=== PATIENT | female | born 1955 | race Caucasian/White ===

== ENCOUNTER → 2016-06-09 | Outpatient (CLI) | payer OTHER ==
[~2016-06-09] MED LIST: CHOL1000 PO; FLAX10007 PO; LEVO50TA6 PO; MULT-506 PO
--- NOTE | 2016-06-10 12:25 | MAMMOGRAPHY REPORT ---
BILATERAL DIGITAL SCREENING MAMMOGRAM TOMOSYNTHESIS WITH CAD: 06/09/2016 CLINICAL HISTORY: Routine screening examination. TECHNIQUE: Breast tomosynthesis in addition to standard 2D mammography was performed. Current study was also evaluated with a Computer Aided Detection (CAD) system. COMPARISON: Comparison is made to exams dated: 06/04/2015 mammogram, 05/12/2014 mammogram, 05/02/2013 mammogram, and 04/22/2012 mammogram - [facility]. BREAST COMPOSITION: There are scattered areas of fibroglandular density in both breasts. FINDINGS: There is a stable benign lymph node in the right breast. No suspicious mass, architectur al distortion or cluster of microcalcifications is seen. IMPRESSION: ACR BI-RADS CATEGORY 2: BENIGN There is no mammographic evidence of malignancy. A 1 year screening mammogram is recommended. The p atient will receive written notification of the results. Approximately 10% of breast cancers are not detected with mammography. A negative mammographic repor t should not delay biopsy if a clinically suggestive mass is present. Jackie Klein M.D. ay/:06/09/2016 21:24:50 Tetryl Nitrator Operator: Masha HUNTLEY(Eugenio)(M), [facility] letter sent: Normal 1/2 BI-RADS Code: ACR BI-RADS Category 2: Benign
== END | disposition home or self-care (01) ==
LOC: C.MAMM 10:19
PROVIDERS: ATTEND Student in an Organized Health Care Education/Training Program
DX: Z12.31 Encounter for screening mammogram for malignant neoplasm of breast (principal)

== ENCOUNTER 2017-04-25 05:10 | Emergency (ER) | payer OTHER ==
[~2017-04-25] VITALS: Ht 171.5 cm; Wt 84.8 kg
[~2017-04-25 05:10] MED LIST changes: +PRD/1 PO
[2017-04-25 05:15] VITALS: TEMP 36.8; Ht 171.5 cm; Wt 84.8 kg
[2017-04-25] MEDS ORDERED: LEVALBUTEROL 1.25MG/0.5ML NEB INH STA (05:39)
[2017-04-25] MEDS ORDERED: SODIUM CHLORIDE 0.9% 500ML 500 ML IV SCH (05:45)
--- NOTE | 2017-04-25 05:53 | EMERGENCY ROOM VISIT NOTE ---
History First contact with patient: 05:19 Chief Complaint: COUGH Stated Complaint: HVY CONGESTED DRY COUGH,VERY WEAK,THROAT ARREOLA Nursing Triage Summary: Patient reports that symptoms began for approx. a week. Cough and sore throat makes it hard to breath and swallow. Patient feels weak. Patient went to walk in clinic on , was given prednisone and tesslon perls with no relief. Patient notes SOB with stairs and exertion. Denies N/V/D History of Present Illness The patient is a 62 year old female who presents to the Emergency Room with complaints of a 1 and a half week history of cough, sore throat, congestion and rhinorrhea. She notes that her symptoms have been getting worse as the week progressed. She states she is now short of breath on exertion, after climbing a flight of stairs, which is new for her. She also reports she has been feeling feverish, with chills. She denies a past history of asthma, COPD, home use of inhalers or oxygen. She denies chest pain, shortness of breath at rest, leg swelling, recent travel/immobility. Of note, her has also been unwell with a cough for the past couple of days. Review of Systems See HPI for pertinent positives & negatives. A total of 10 systems reviewed and were otherwise negative. Past Medical/Surgical History Medical Problems: (1) Hypothyroidism Social History Smoking Status: Never Smoker Alcohol Use: none Drug Use: none Marital Status: Housing Status: lives with family Occupation Status: employed Current/Historical Medications Scheduled B-Complex Vitamins (Vitamin B Complex), 1 TAB PO DAILY Cholecalciferol (Vitamin D3), 1,000 UNIT PO DAILY Levothyroxine Sodium (Levothyroxine Sodium), 50 MCG PO DAILY Magnesium (Magnesium 250 mg), 1-2 TAB PO DAILY Multivitamin (Multivitamin), 1 TAB PO DAILY Prednisone (Prednisone), 2 TAB PO DAILY Probiotic Product (Probiotic), 1 CAP PO DAILY Scheduled PRN Benzonatate (Tessalon Perles), 1-2 CAP PO Q4 PRN for Cough Physical Exam Vital Signs Date Time Temp Pulse Resp B/P (MAP) Pulse Ox O2 Delivery O2 Flow Rate FiO2 04/25/17 07:03 94 18 113/72 97 Room Air 04/25/17 05:31 Room Air 04/25/17 05:15 36.8 112 20 146/86 95 Room Air Physical Exam HEENT: Head - normocephalic and atraumatic. Nose - moist nasal mucosa without discharge. Mouth - moist buccal mucosa. Oropharynx is erythematous and there is no tonsillar exudate or edema noted. Neck: Supple; no JVD, nuchal rigidity. Submandibular lymphadenopathy present. Heart: Regular rate and rhythm. There is a normal S1 and S2 with no murmurs, clicks, or gallops appreciated. Lungs: Clear to auscultation bilaterally with soft wheezes. No rales, crackles or rhonchi. Abdomen: Soft, completely nontender, nondistended, with good bowel sounds. There are no palpable pulsatile masses or hepatosplenomegaly. There is no guarding, rigidity, or rebound noted. Extremities: No evidence of cyanosis, clubbing, or edema. There are easily palpable peripheral pulses. Neuro:The patient is awake and alert, oriented to day, time, and place. Medical Decision & Procedures ER Provider Diagnostic Interpretation: CHEST ONE VIEW PORTABLE CLINICAL HISTORY: cough and sob, rule out infection dyspnea COMPARISON STUDY: 2008 FINDINGS: The bones soft tissues and hemidiaphragms are normal. The cardiomediastinal silhouette is normal. The lungs are clear. The pulmonary vasculature is normal. IMPRESSION: Negative chest. Laboratory Results 04/25/17 05:55 04/25/17 05:55 Test 04/25/17 05:55 04/25/17 06:03 Red Blood Count 4.37 M/uL (4.2-5.4) Mean Corpuscular Volume 95.4 fL (80-100) Mean Corpuscular Hemoglobin 31.8 pg (25-34) Mean Corpuscular Hemoglobin Concent 33.3 g/dl (32-36) RDW Standard Deviation 44.6 fL (36.4-46.3) RDW Coefficient of Variation 12.9 % (11.5-14.5) Mean Platelet Volume 9.0 fL (7.4-10.4) Anion Gap 9.0 mmol/L (3-11) Est Creatinine Clear Calc Drug Dose 65.7 ml/min Estimated GFR () 70.3 Estimated GFR (Non- 60.6 BUN/Creatinine Ratio 16.2 (10-20) Calcium Level 8.5 mg/dl (8.5-10.1) Total Bilirubin 0.8 mg/dl (0.2-1) Aspartate Amino Transf (AST/SGOT) 14 U/L (15-37) Alanine Aminotransferase (ALT/SGPT) 28 U/L (12-78) Alkaline Phosphatase 61 U/L (45-117) Total Protein 7.7 gm/dl (6.4-8.2) Albumin 3.6 gm/dl (3.4-5.0) Globulin 4.1 gm/dl (2.5-4.0) Albumin/Globulin Ratio 0.9 (0.9-2) Influenza Type A Antigen Neg for Influ A (NEG) Influenza Type B Antigen Neg for Influ B (NEG) Medications Administered Medications (Trade) Dose Ordered Sig/Josefina Route Start Time Stop Time Status Last Admin Dose Admin Levalbuterol (Xopenex 1.25MG/ 0.5ML Neb) 1.25 mg NOW STAT INH 04/25/17 05:39 04/25/17 05:41 DC 04/25/17 05:53 1.25 MG Sodium Chloride 500 ml @ 999 mls/hr Q31M IV 04/25/17 05:45 05/25/17 05:44 04/25/17 05:45 999 MLS/HR Acetaminophen (Tylenol Tab) 1,000 mg NOW STAT PO 04/25/17 06:35 04/25/17 06:36 DC 04/25/17 06:55 1,000 MG Guaifenesin (Organidin Nr Tab) 200 mg NOW ONCE PO 04/25/17 06:45 04/25/17 06:46 DC 04/25/17 06:45 200 MG Lidocaine HCl (Viscous Lidocaine 2% Soln) 10 ml NOW STAT MT 04/25/17 06:46 04/25/17 06:47 DC 04/25/17 06:56 10 ML ECG Indication: SOB/dyspnea Rate (beats per minute): 98 Rhythm: normal sinus Findings: no acute ischemic change, no ectopy Comparison ECG Date: no prior available ED Course 5:19: The patient was evaluated in room B10. A complete history and physical exam was performed. 5:35: The case was discussed with the attending, Dr. Aguilar. 5:41: Xopenex nebulizers and 500ml IV NS bolus ordered 6:20: Dr. Aguilar discussed her x-ray and lab findings with her. 6:32: The patient was reassessed. She states the nebulizers did not improve her symptoms at all. 6:35: 1g oral acetaminophen ordered. 6:43: 200mg PO Guaifenesin ordered 6:46: Viscous lidocaine ordered Medical Decision Etiologies such as pneumonia, COPD, reactive airway disease, CHF, cardiac ischemia, influenza, pneumothorax, musculoskeletal, infections, as well as others were entertained. The patient is a 62 year old female who presents to the Emergency Room with complaints of a 1 and a half week history of cough, sore throat, congestion and rhinorrhea. Her chest x-ray was unremarkable. CBC and CMP were within normal limits. Her symptoms did not improve with Xopenex nebulizers. She was also given acetaminophen, mucinex and viscous lidocaine. She was discharged with a prescription for viscous lidocaine to use as needed for her sore throat. She was also counselled on the fact that her illness was likely viral and that her cough may take a few weeks to fully resolve. She was told to return if her symptoms worsened. Impression Primary Impression: Upper respiratory infection Departure Information Dispostion Home / Self-Care Prescriptions Lidocaine Hcl (Mouth-Throat) (LIDOCAINE VISCOUS) 2 % Rimma 5 ML PO TID for 6 Days, #100 ML Prov: Heron Mulligan M.D. 04/25/17 Referrals No Doctor, Assigned (PCP) Patient Instructions My [facility] Additional Instructions You came to [facility] emergency department due to cough, sore throat, and generally feeling unwell. Your chest x-ray did not show any evidence of a pneumonia. Your EKG (electrical tracing of your heart) was normal and your blood work and flu swab came back normal as well. Your symptoms are likely due to a viral infection. Unfortunately, it can take up to 3-4 weeks for the cough to fully resolve. We recommend continuing to use tylenol, and mucinex as needed for your symptoms. We also prescribed lidocaine that you can use as needed for your sore throat. If you develop chest pain, high fevers, or worsening shortness of breath , please seek medical attention. Otherwise, you can follow up with your family doctor to ensure your symptoms are resolving. Resident Tracking Resident Involvement: Resident Care Provided Care Provided: Adult ED Problem Qualifiers Primary Impression: Upper respiratory infection URI type: unspecified viral URI Qualified Codes: J06.9 - Acute upper respiratory infection, unspecified
[2017-04-25 06:05] LABS: HEMATOCRIT 41.7 % (37-47); HEMOGLOBIN 13.9 g/dL (12.0-16.0); MEAN CELL VOLUME 95.4 fL (80-100); MEAN CORPUSCULAR HEMOGLOBIN 31.8 pg (25-34); MEAN CORPUSCULAR HGB CONC 33.3 g/dl (32-36); PLATELET COUNT 236 K/uL (130-400); RED CELL DISTRIBUTION WIDTH CV 12.9 % (11.5-14.5); RED CELL DISTRIBUTION WIDTH SD 44.6 fL (36.4-46.3); WHITE BLOOD COUNT 9.27 K/uL (4.8-10.8)
--- NOTE | 2017-04-25 06:15 | DIAGNOSTIC IMAGING REPORT ---
CHEST ONE VIEW PORTABLE CLINICAL HISTORY: cough and sob, rule out infection dyspnea COMPARISON STUDY: 2008 FINDINGS: The bones soft tissues and hemidiaphragms are normal. The cardiomediastinal silhouette is normal. The lungs are clear. The pulmonary vasculature is normal. IMPRESSION: Negative chest. The above report was generated using voice recognition software. It may contain grammatical, syntax or spelling errors. Electronically signed by: Andres Briones M.D. 04/25/2017 6:14 AM Dictated Date/Time: 04/25/2017 6:14 AM
[2017-04-25 06:21] LABS: ALBUMIN 3.6 gm/dl (3.4-5.0); CALCIUM 8.5 mg/dl (8.5-10.1); CREATININE 0.99 mg/dl (0.60-1.20); POTASSIUM 3.8 mmol/L (3.5-5.1)
[2017-04-25 06:24] LABS: TOTAL PROTEIN 7.7 gm/dl (6.4-8.2)
[2017-04-25] MEDS ORDERED: ACETAMINOPHEN 500 MG TAB PO STA (06:35)
[2017-04-25 06:40] LABS: INFLUENZA B ANTIGEN Neg for Influ B (NEG)
[2017-04-25] MEDS ORDERED: GUAIFENESIN 200 MG TAB PO ONE (06:45)
[2017-04-25] MEDS ORDERED: LIDOCAINE HCL 2% VISC SOLN 20 ML UDC MT STA (06:46)
[2017-04-25] MEDS ORDERED: MAGN250T3 PO (07:00)
[2017-04-25] MEDS ORDERED: MISCCAP80 PO (07:00)
[2017-04-25] MEDS ORDERED: B-COTAB18 PO (07:00)
[2017-04-25] MEDS ORDERED: BENZ100C84 PO (07:01)
[2017-04-25] MEDS ORDERED: LIDO2SOL19 PO (07:12)
--- NOTE | 2017-04-25 07:21 | EMERGENCY ROOM VISIT NOTE ---
History Report prepared by lEaine: Georgette Tobar Under the Supervision of: Dr. Caryl Aguilar D.O. First contact with patient: 05:19 Chief Complaint: COUGH Stated Complaint: HVY CONGESTED DRY COUGH,VERY WEAK,THROAT ARREOLA Nursing Triage Summary: Patient reports that symptoms began for approx. a week. Cough and sore throat makes it hard to breath and swallow. Patient feels weak. Patient went to walk in clinic on , was given prednisone and tesslon perls with no relief. Patient notes SOB with stairs and exertion. Denies N/V/D History of Present Illness The patient is a 62 year old female who presents to the Emergency Room with complaints of persistent cough starting 1.5 weeks ago. The cough was initially productive. She reports sore throat, sinus pressure, rhinorrhea, and some chills. She has not taken her temperature. She is SOB with exertion. She denies any chest pain or leg swelling. She did not receive a flu shot this season. She denies any recent travel or immobilization. Her has been sick with a cough for several days. She denies any history of COPD or asthma. She is not on any inhalers or oxygen. Patient with no history of ACS or cardiac pathology. Patient seen in conjunction with the family practice resident. Source of History: patient Onset: 1.5 weeks ago Position: other (global) Quality: other (cough) Timing: other (persistent) Associated Symptoms: + chills, + sorethroat, + SOB, No chest pain Note: Pt reports sinus pressure and rhinorrhea. Pt denies leg swelling. Review of Systems See HPI for pertinent positives & negatives. A total of 10 systems reviewed and were otherwise negative. Past Medical & Surgical Medical Problems: (1) Hypothyroidism Family History Diabetes mellitus FHx: cancer Kidney disease Kidney stones Social History Smoking Status: Never Smoker Alcohol Use: none Drug Use: none Marital Status: Housing Status: lives with family Occupation Status: employed Current/Historical Medications Scheduled B-Complex Vitamins (Vitamin B Complex), 1 TAB PO DAILY Cholecalciferol (Vitamin D3), 1,000 UNIT PO DAILY Levothyroxine Sodium (Levothyroxine Sodium), 50 MCG PO DAILY Lidocaine Hcl (Mouth-Throat) (Lidocaine Viscous), 5 ML PO TID Magnesium (Magnesium 250 mg), 1-2 TAB PO DAILY Multivitamin (Multivitamin), 1 TAB PO DAILY Prednisone (Prednisone), 2 TAB PO DAILY Probiotic Product (Probiotic), 1 CAP PO DAILY Scheduled PRN Benzonatate (Tessalon Perles), 1-2 CAP PO Q4 PRN for Cough Allergies Coded Allergies: Sulfa Drugs (Verified Allergy, Intermediate, HIVES, 04/25/17) Physical Exam Vital Signs Date Time Temp Pulse Resp B/P (MAP) Pulse Ox O2 Delivery O2 Flow Rate FiO2 04/25/17 07:45 92 18 118/69 98 04/25/17 07:03 94 18 113/72 97 Room Air 04/25/17 05:31 Room Air 04/25/17 05:15 36.8 112 20 146/86 95 Room Air Physical Exam GENERAL: alert, ill appearing, well nourished, no distress, non-toxic EYE EXAM: normal conjunctiva, PERRL and EOM's grossly intact OROPHARYNX: no exudate, mild erythema, lips, buccal mucosa, and tongue normal and mucous membranes are moist. No tonsillar hypertrophy. Uvula midline. NECK: supple, no nuchal rigidity, no adenopathy, non-tender LUNGS: Clear to auscultation. Normal chest wall mechanics. No wheezes, rhonchi, rales. HEART: no murmurs, S1 normal and S2 normal ABDOMEN: abdomen soft, non-tender, normo-active bowel sounds, no masses, no rebound or guarding. BACK: Back is symmetrical on inspection and there is no deformity, no midline tenderness, no CVA tenderness. SKIN: no rashes and no bruising UPPER EXTREMITIES: upper extremities are grossly normal. LOWER EXTREMITIES: No pitting edema. NEURO EXAM: Normal sensorium, cranial nerves II-XII grossly intact, normal speech, no gross weakness of arms, no gross weakness of legs. Medical Decision & Procedures ER Provider Diagnostic Interpretation: Radiology results have been interpreted by the radiologist and reviewed by me. CHEST ONE VIEW PORTABLE CLINICAL HISTORY: cough and sob, rule out infection dyspnea COMPARISON STUDY: 2008 FINDINGS: The bones soft tissues and hemidiaphragms are normal. The cardiomediastinal silhouette is normal. The lungs are clear. The pulmonary vasculature is normal. IMPRESSION: Negative chest. The above report was generated using voice recognition software. It may contain grammatical, syntax or spelling errors. Electronically signed by: Andres Briones M.D. 04/25/2017 6:14 AM Dictated Date/Time: 04/25/2017 6:14 AM Laboratory Results 04/25/17 05:55 04/25/17 05:55 Test 04/25/17 05:55 04/25/17 06:03 Red Blood Count 4.37 M/uL (4.2-5.4) Mean Corpuscular Volume 95.4 fL (80-100) Mean Corpuscular Hemoglobin 31.8 pg (25-34) Mean Corpuscular Hemoglobin Concent 33.3 g/dl (32-36) RDW Standard Deviation 44.6 fL (36.4-46.3) RDW Coefficient of Variation 12.9 % (11.5-14.5) Mean Platelet Volume 9.0 fL (7.4-10.4) Anion Gap 9.0 mmol/L (3-11) Est Creatinine Clear Calc Drug Dose 65.7 ml/min Estimated GFR () 70.3 Estimated GFR (Non- 60.6 BUN/Creatinine Ratio 16.2 (10-20) Calcium Level 8.5 mg/dl (8.5-10.1) Total Bilirubin 0.8 mg/dl (0.2-1) Aspartate Amino Transf (AST/SGOT) 14 U/L (15-37) Alanine Aminotransferase (ALT/SGPT) 28 U/L (12-78) Alkaline Phosphatase 61 U/L (45-117) Total Protein 7.7 gm/dl (6.4-8.2) Albumin 3.6 gm/dl (3.4-5.0) Globulin 4.1 gm/dl (2.5-4.0) Albumin/Globulin Ratio 0.9 (0.9-2) Influenza Type A Antigen Neg for Influ A (NEG) Influenza Type B Antigen Neg for Influ B (NEG) Laboratory results per my review. Medications Administered Medications (Trade) Dose Ordered Sig/Josefina Route Start Time Stop Time Status Last Admin Dose Admin Levalbuterol (Xopenex 1.25MG/ 0.5ML Neb) 1.25 mg NOW STAT INH 04/25/17 05:39 04/25/17 05:41 DC 04/25/17 05:53 1.25 MG Sodium Chloride 500 ml @ 999 mls/hr Q31M IV 04/25/17 05:45 1/13/18 08:50 DC 04/25/17 05:45 999 MLS/HR Acetaminophen (Tylenol Tab) 1,000 mg NOW STAT PO 04/25/17 06:35 04/25/17 06:36 DC 04/25/17 06:55 1,000 MG Guaifenesin (Organidin Nr Tab) 200 mg NOW ONCE PO 04/25/17 06:45 04/25/17 06:46 DC 04/25/17 06:45 200 MG Lidocaine HCl (Viscous Lidocaine 2% Soln) 10 ml NOW STAT MT 04/25/17 06:46 04/25/17 06:47 DC 04/25/17 06:56 10 ML ECG Indication: SOB/dyspnea Rate (beats per minute): 98 Rhythm: sinus rhythm Findings: no acute ischemic change, no ectopy, other (normal axis, normal intervals) ED Course 0539: Levalbuterol 1.25 mg INH. 0545: NSS 500 ml @ 999 mls/hr IV. 0618: The patient was evaluated in room B10. A complete history and physical exam was performed. 0635: Acetaminophen 1000 mg PO. 0645: Guaifenesin 200 mg PO. 0646: Lidocaine HCl 10 ml MT. 0710: Upon reevaluation, the patient is feeling better. I discussed the findings and the treatment plan with the patient. She verbalizes agreement and understanding. She was discharged home. Medical Decision Differential diagnosis: bronchitis, pneumonia, URI, pharyngitis, sinusitis. Doubt cardiac etiology, no evidence of effusion, CHF, pneumonia. Doubt PE. Given recent exposure to sick family member, more likely viral upper respiratory infection. Patient improved here, discussed symptoms, follow-up with family doctor, symptoms to watch and return for, she verbalized understanding was agreeable with plan. No evidence of bacteremia/sepsis. Vital signs stable throughout. She aware of all results. Patient tolerating by mouth bedside and related with a steady gait. HEART score 1 Medication Reconcilliation Current Medication List: was personally reviewed by me Blood Pressure Screening Patient's blood pressure: Elevated blood pressure Blood pressure disposition: Elevated BP felt to be situational Impression Primary Impression: Upper respiratory infection Scribe Attestation The scribe's documentation has been prepared under my direction and personally reviewed by me in its entirety. I confirm that the note above accurately reflects all work, treatment, procedures, and medical decision making performed by me. Departure Information Dispostion Home / Self-Care Prescriptions Lidocaine Hcl (Mouth-Throat) (LIDOCAINE VISCOUS) 2 % Rimma 5 ML PO TID for 6 Days, #100 ML Prov: Heron Mulligan M.D. 04/25/17 Referrals Tasneem Torres D.O. Forms HOME CARE DOCUMENTATION FORM, IMPORTANT VISIT INFORMATION Patient Instructions My [facility] Additional Instructions You came to [facility] emergency department due to cough, sore throat, and generally feeling unwell. Your chest x-ray did not show any evidence of a pneumonia. Your EKG (electrical tracing of your heart) was normal and your blood work and flu swab came back normal as well. Your symptoms are likely due to a viral infection. Unfortunately, it can take up to 3-4 weeks for the cough to fully resolve. We recommend continuing to use tylenol, and mucinex as needed for your symptoms. We also prescribed lidocaine that you can use as needed for your sore throat. If you develop chest pain, high fevers, or worsening shortness of breath , please seek medical attention. Otherwise, you can follow up with your family doctor to ensure your symptoms are resolving. Problem Qualifiers Primary Impression: Upper respiratory infection URI type: unspecified URI Qualified Codes: J06.9 - Acute upper respiratory infection, unspecified
[2017-04-25 07:45] VITALS: BP 118/69; PULSE 92; O2SAT 98
== END 2017-04-25 07:46 | disposition home or self-care (01) ==
LOC: C.EDB 05:11
DX: J06.9 Acute upper respiratory infection, unspecified (principal); E03.9 Hypothyroidism, unspecified; Z80.9 Family history of malignant neoplasm, unspecified; Z83.3 Family history of diabetes mellitus; Z84.1 Family history of disorders of kidney and ureter

== ENCOUNTER → 2017-06-15 | Outpatient (CLI) | payer OTHER ==
[~2017-06-15] MED LIST changes: +B-COTAB18 PO; +BENZ100C84 PO; -FLAX10007 PO; +MAGN250T3 PO; +MISCCAP80 PO
--- NOTE | 2017-06-15 15:41 | MAMMOGRAPHY REPORT ---
BILATERAL DIGITAL SCREENING MAMMOGRAM TOMOSYNTHESIS WITH CAD: 06/15/2017 CLINICAL HISTORY: Routine screening. Patient has no complaints. TECHNIQUE: Breast tomosynthesis in addition to standard 2D mammography was performed. Current study was also evaluated with a Computer Aided Detection (CAD) system. COMPARISON: Comparison is made to exams dated: 06/09/2016 mammogram, 06/04/2015 mammogram, 05/12/2014 m ammogram, 05/02/2013 mammogram, 04/22/2012 mammogram, and 04/17/2011 mammogram - [facility] nter. BREAST COMPOSITION: There are scattered areas of fibroglandular density in both breasts. FINDINGS: The parenchymal pattern is unchanged. No developing mass, architectural distortion or clus ter of suspicious microcalcifications is seen in either breast. IMPRESSION: ACR BI-RADS CATEGORY 2: BENIGN There is no mammographic evidence of malignancy. A 1 year screening mammogram is recommended. The pa tient will receive written notification of the results. Approximately 10% of breast cancers are not detected with mammography. A negative mammographic report should not delay biopsy if a clinically suggestive mass is present. Jackie Klein M.D. ay/:06/15/2017 15:15:42 [employer]: Tala HUNTLEY(Eugenio)(Josué)(BD), [facility] letter sent: Normal 1/2 BI-RADS Code: ACR BI-RADS Category 2: Benign
== END | disposition home or self-care (01) ==
LOC: C.MAMM 09:03
PROVIDERS: ATTEND Student in an Organized Health Care Education/Training Program
DX: Z12.31 Encounter for screening mammogram for malignant neoplasm of breast (principal)